=== PATIENT | male | born 1950 | race Hispanic/Latino ===

== ENCOUNTER 2025-03-13 06:51 | Day surgery (SDC) | payer OTHER ==
[2025-03-12 13:57] VITALS: BP 143/81; PULSE 72; RESP 14; TEMP 97.2
[2025-03-12 13:57] LABS: IMMATURE GRANULOCYTE ABSOLUTE 0.04 K/uL (0-1); NUCLEATED RED BLOOD CELLS 0.0 % (0.0-0.19); PLATELET COUNT (AUTO) 163 K/uL (130-400); RED BLOOD CELL COUNT(AUTO) 5.45 MIL/uL (4.50-6.20); RED CELL DISTRIBUTION WIDTH 13.4 % (11.0-15.5); WHITE BLOOD COUNT (AUTO) 7.7 K/uL (4.8-10.8)
[2025-03-12 14:05] LABS: CREATININE 0.7 mg/dL (0.5-1.3); GLOMERULAR FILTR. RATE CALC 97.0 mL/min (>90); GLUCOSE,RANDOM 137.0 mg/dL (70-105); SODIUM SERUM 141.0 mmol/L (136-145); UREA NITROGEN, BLOOD 14.0 mg/dL (7-18)
[2025-03-12 14:08] LABS: INR 1.0 (0.85-1.15)
[2025-03-12 14:21] LABS: APPEARANCE,URINE CLEAR (CLEAR); GLUCOSE, URINE (UA) >=1000 mg/dL (NEGATIVE); LEUKOCYTE ESTERASE ,URINE NEGATIVE Leu/uL (NEGATIVE); NITRATE,URINE NEGATIVE (NEGATIVE); OCCULT BLOOD,URINE NEGATIVE (NEGATIVE)
[2025-03-12 14:24] LABS: ADD UA MICROSCOPIC YES
--- NOTE | 2025-03-12 15:28 | EKG ---
[facility] Test Date: 2025-03-12 Test Time: 13:44:50 Pat Name: MARIA D BRADEN Department: [facility] Room: Gender: Email Manager: [id number] : 1950 Requested By: LUL ANDRES Order Number: [id number] Reading MD: Lul Andres Measurements Intervals [place] Rate: 74 P: 51 [place]: 143 QRS: -20 QRSD: 91 T: 21 QT: 390 QTc: 434 Interpretive Statements Sinus rhythm Atrial premature complex No previous ECG available for comparison Electronically Signed On 03-12-2025 18:23:31 [employer] PHOTOGRAPHER by Lul Andres Please click the below link to view image of tracing.
--- NOTE | 2025-03-12 15:56 | HMCIMG ---
EXAM: CR Chest, 1 View. CLINICAL HISTORY: PRE OP COMPARISON: None provided. FINDINGS: LUNGS: The lungs show no infiltrate or other acute finding. PLEURAL SPACES: No pleural effusion or pneumothorax. MEDIASTINUM: The cardiomediastinal silhouette is within normal limits. BONES: No aggressive appearing osseous lesion seen. IMPRESSION: No acute cardiopulmonary pathology is evident. /[place]
[2025-03-13] VITALS (7 sets, daily range): BP systolic 119–143; BP diastolic 59–79; PULSE 77–91; RESP 13–16; TEMP 97.7–97.8
[~2025-03-13] VITALS: Ht 172.7 cm; Wt 104.1 kg
[~2025-03-13 06:51] MED LIST: APIX5TAB PO; ASPI-1443 PO; ATOR40TA69 PO; CARB-38 PO; DAPA10TA PO; DUTA0.5C37 PO; ERGO500093 PO; GABA-529 PO; LOSA25TA41 PO; METO-391 PO; PIOG30TA70 PO; TIRZ7.5P SQ; tamsulosin PO
[2025-03-13] MEDS: 0.9%NACL 1000ML 1,000 ML IV SCH (07:26)
[2025-03-13] MEDS ORDERED: SODIUM BICARB 50MEQ 50ML VIAL 50 ML ONE (11:16)
[2025-03-13] MEDS ORDERED: LIDOCAINE HCL 400MG/20ML VIAL ONE (11:16)
[2025-03-13] MEDS ORDERED: IODIXANOL 320 MG/ML 100 ML VIAL ONE (11:16)
[2025-03-13] MEDS ORDERED: NITROGLYCERIN 50MG VIAL ONE (11:17)
[2025-03-13] MEDS ORDERED: HEParin-NS 1,000 UNIT/500 ML 1,000 ML IV ONE (11:17)
[2025-03-13] MEDS ORDERED: MIDAZOLAM HCL 1 MG/ML 2ML VIAL ONE (11:29)
[2025-03-13] MEDS ORDERED: HEParin-NS 1,000 UNIT/500 ML 500 ML IV ONE (12:04)
--- NOTE | 2025-03-13 12:45 | PRN ---
LEFT ILIOFEMORAL VENOGRAM AND INTRAVASCULAR ULTRASOUND TECHNIQUE: Patient was brought to the lab in a fasting state after informed consent and sedated with 1 mg Versed and 50 mcg fentanyl. Under local anesthesia with 1% lidocaine using ultrasound guidance and micropuncture technique the right jugular vein was accessed via a posterior approach and a nine [place] sheath was inserted. Using an angled glide catheter and a Glidewire we cannulated the left deep femoral vein and removed the wire, positioned the catheter in the common femoral vein and performed iliofemoral venography. We then reinserted the wire and exchanged for an intravascular ultrasound catheter. I personally obtain the images, selected the images for interpretation, performed the measurements and interpreted the results for femoral to inferior vena cava intravascular ultrasound. After review of these images we observed that the patient did not meet criteria for further venous stenting (had undergone successful stent on the right side previously), and so we terminated the procedure by removing all wires and catheters, sitting the patient in an upright position and removing the sheath. Venous hemostasis was obtained by direct digital pressure with no complication. Results: There appeared to be a 50% compression at the pelvic rim of the juncture of the external iliac and common femoral by venography. Intravascular ultrasound results are as follows: Inferior vena cava reference area 241.9 mm, diameter 18 mm. Left common iliac vein reference area 198.4 mm, diameter 16.8 mm. Left common iliac vein compression area 154.3 mm, diameter 14.2 mm, 22% st enosis. Left external iliac vein reference area 173.4 mm, diameter 14.8 mm. Left external iliac vein compression area 94.4 mm, diameter 11.3 mm, 42.3% compression. Left common femoral vein reference area 158.2 mm, diameter 14.3 mm. Conclusions: Although some eccentricity produces the impression of the 50% stenosis in the juncture between the left external iliac and common femoral, intravascular ultrasound clearly demonstrates only 42% compression which does not meet criteria for venous stenting. PATRICIA ANDRES MD Mar 13, 2025 12:45
--- NOTE | 2025-03-13 16:00 | NUR ---
PATIENT DISCHARGED FROM HOSPITAL VIA WHEELCHAIR BY NURSE. PATIENT ASSISTED INTO PRIVATE CAR DRIVEN BY DAUGHTER.
== END 2025-03-13 16:00 | disposition home or self-care (01) ==
LOC: DAH 06:51
PROVIDERS: ATTEND Internal Medicine Cardiovascular Disease
DX: R60.0 Localized edema (principal); I73.9 Peripheral vascular disease, unspecified; E11.9 Type 2 diabetes mellitus without complications; I25.810 Atherosclerosis of coronary artery bypass graft(s) without angina pectoris; I10 Essential (primary) hypertension; E78.5 Hyperlipidemia, unspecified; I48.0 Paroxysmal atrial fibrillation; N40.0 Benign prostatic hyperplasia without lower urinary tract symptoms; Z82.3 Family history of stroke; Z83.3 Family history of diabetes mellitus; Z79.899 Other long term (current) drug therapy
CPT/HCPCS: 80048; 83880; 85025; 85610; 85730; 81001; 36415; 71045; 93005; 36012; 75820; 37252; 37253 ×3; 99156; 99157 ×3; 82948; A4223 ×3; A4222; C1887; C1769; C1894 ×2; C1753; J3010; J3490 ×3; J2250; J1644 ×2; Q9967; A4215; A4221; A4663; A4216; A4606